=== PATIENT | male | born 2000 | race Caucasian/White ===

== ENCOUNTER 2018-03-26 17:10 | Emergency (ER) | payer MEDICAID ==
[~2018-03-26] VITALS: Ht 172.7 cm; Wt 56.4 kg
[~2018-03-26 17:10] MED LIST: ONDA4TAB12 PO
[2018-03-26 17:48] LABS: BASOPHILS # (AUTO) 0.1 X10'3 (0-0.2); BASOPHILS % (AUTO) 0.7 % (0-1); EOSINOPHILS % (AUTO) 0.6 % (0-6); HEMATOCRIT 44.2 % (42.0-52.0); LYMPHOCYTES # (AUTO) 2.1 X10'3 (1.1-4.8); LYMPHOCYTES % (AUTO) 26.8 % (21-51); MEAN CORPUSCULAR HEMOGLOBIN 31.3 PG (27.0-31.0); MEAN CORPUSCULAR HGB CONC 33.9 % (33.0-36.5); MEAN CORPUSCULAR VOLUME 92.2 FL (78-98); MEAN PLATELET VOLUME 8.1 FL (7.4-10.4); MONOCYTES # (AUTO) 0.5 X10'3 (0-0.9); MONOCYTES % (AUTO) 5.9 % (2-12); NEUTROPHILS # (AUTO) 5.2 X10'3 (1.8-7.7); PLATELET COUNT 242 X10'3 (140-440); RED BLOOD COUNT 4.79 X10'6 (4.70-6.10); RED CELL DISTRIBUTION WIDTH 12.8 % (11.5-14.5); WHITE BLOOD COUNT 7.9 X10'3 (4.5-11.0)
[2018-03-26 17:59] LABS: CLARITY,URINE SLIGHTLY CLOUDY (Clear); COLOR,URINE YELLOW (Yellow); GLUCOSE, URINE NEGATIVE (Neg); KETONES,URINE NEGATIVE (Neg); LEUKOCYTE ESTERASE ,URINE NEGATIVE (Neg); NITRITES, URINE NEGATIVE (Neg); OCCULT BLOOD,URINE NEGATIVE (Neg); PH,URINE 7.5 (4.8-8.0); PROTEIN,URINE NEGATIVE (Neg); UA COLLECTION TYPE CLN CATCH MIDSTREAM; UROBILINOGEN,URINE 0.2 E.U/dL (0.2-1.0)
[2018-03-26 18:04] LABS: SQUAMOUS EPITHELIAL CELL,UR MODERATE /LPF (FEW)
[2018-03-26 18:05] LABS: BACTERIA,URINE 1+ /HPF (Neg); RBC,URINE 0-2 /HPF (0-2); WBC,URINE 0-4 /HPF (0-4)
[2018-03-26 18:16] LABS: URINE AMPHETAMINE SCREEN NEGATIVE (Neg); URINE BARBITUATE SCREEN NEGATIVE (Neg); URINE BENZODIAZEPINES SCREEN NEGATIVE (Neg); URINE CANNABINOID SCREEN POSITIVE (Neg); URINE COCAINE SCREEN NEGATIVE (Neg); URINE METHADONE SCREEN NEGATIVE (Neg); URINE OPIATE SCREEN NEGATIVE (Neg); URINE PHENCYCLIDINE SCREEN NEGATIVE (Neg)
[2018-03-26 18:19] LABS: ALANINE AMINOTRANSFERASE 15 U/L (12-78); ALBUMIN 4.2 G/DL (3.4-5.0); ALBUMIN/GLOBULIN RATIO 1.2 (1.1-1.5); ALKALINE PHOSPHATASE 57 IU/L (20-180); ANION GAP 7 (8-16); ASPARTATE AMINO TRANSFERASE 12 U/L (10-37); BILIRUBIN,TOTAL 0.4 MG/DL (0.1-1.0); BLOOD UREA NITROGEN 10 MG/DL (7-18); BUN/CREATININE RATIO 9.6 (5.4-32.0); CALCIUM 9.5 MG/DL (8.5-10.1); CHLORIDE 107 MMOL/L (99-107); CREATININE 1.04 MG/DL (0.60-1.10); GLUCOSE 102 MG/DL (70-104); POTASSIUM 4.2 MMOL/L (3.5-5.1); SODIUM 140 MMOL/L (135-145); TOTAL CARBON DIOXIDE 26.2 MMOL/L (24-32); TOTAL PROTEIN 7.6 G/DL (6.4-8.2); eGFR > 90 ML/MIN
[2018-03-26 18:27] LABS: ETHANOL < 0.010 GM/DL (0.0-0.010)
[2018-03-26] MEDS ORDERED: LURA40TA3 PO ×2 (18:43→18:48)
[2018-03-26] MEDS ORDERED: lurasidone 20mg tablet PO SCH (21:00)
[2018-03-26] MEDS ORDERED: LORazepam 1 MG tablet PO PRN (21:05)
[2018-03-26] MEDS ORDERED: nicotine 14mg patch - 24hr TD ONE (21:05)
[2018-03-26] MEDS ORDERED: haloperidol 5mg tablet PO PRN (21:05)
[2018-03-27 05:33] VITALS: BP 97/58
== END 2018-03-27 10:35 | disposition left against medical advice (07) ==
LOC: ER 17:10
DX: F41.9 Anxiety disorder, unspecified (principal); F31.9 Bipolar disorder, unspecified; F17.200 Nicotine dependence, unspecified, uncomplicated; F12.90 Cannabis use, unspecified, uncomplicated; Z79.899 Other long term (current) drug therapy
CPT/HCPCS: 36415; 80053; 80305; 80320; 81001; 84443; 85025; 99284

== ENCOUNTER 2018-03-27 14:16 | Emergency (ER) | payer MEDICAID ==
[~2018-03-27] VITALS: Ht 591.1 cm; Wt 56.4 kg
[~2018-03-27 14:16] MED LIST changes: +LURA40TA3 PO
[2018-03-27] MEDS ORDERED: LORazepam 2 mg/ml vial IM PRN ×2 (14:45→14:59)
[2018-03-27] MEDS ORDERED: haloperidol lactate 5mg/ml inj IM PRN (14:45)
[2018-03-27] MEDS ORDERED: haloperidol 5mg tablet PO PRN (14:45)
[2018-03-27] MEDS ORDERED: haloperidol 5mg tablet PO SCH (14:58)
[2018-03-27] MEDS: haloperidol 5mg tablet PO PRN (15:02)
[2018-03-27] MEDS: LORazepam 1 MG tablet PO PRN (15:02)
[2018-03-27 15:44] LABS: URINE AMPHETAMINE SCREEN NEGATIVE (Neg); URINE BARBITUATE SCREEN NEGATIVE (Neg); URINE BENZODIAZEPINES SCREEN NEGATIVE (Neg); URINE CANNABINOID SCREEN POSITIVE (Neg); URINE COCAINE SCREEN NEGATIVE (Neg); URINE METHADONE SCREEN NEGATIVE (Neg); URINE OPIATE SCREEN NEGATIVE (Neg); URINE PHENCYCLIDINE SCREEN NEGATIVE (Neg)
[2018-03-27] MEDS: haloperidol lactate 5mg/ml inj IM SCH (19:45)
[2018-03-27] MEDS ORDERED: ibuprofen tablet 400 MG TABLET PO ONE (20:00)
[2018-03-28] MEDS: haloperidol lactate 5mg/ml inj IM SCH ×2 (08:00→20:00)
[2018-03-28] MEDS: LORazepam 1 MG tablet PO PRN ×2 (08:17→19:46)
[2018-03-28] MEDS: haloperidol 5mg tablet PO PRN ×2 (08:17→19:47)
[2018-03-28] MEDS ORDERED: lurasidone 20mg tablet PO SCH (21:00)
[2018-03-29 06:36] VITALS: BP 108/65
[2018-03-29] MEDS: haloperidol lactate 5mg/ml inj IM SCH (08:00)
[2018-03-29] MEDS: haloperidol 5mg tablet PO PRN (09:57)
[2018-03-29] MEDS: LORazepam 1 MG tablet PO PRN (09:57)
== END 2018-03-29 17:03 ==
LOC: ER 14:17
DX: F41.9 Anxiety disorder, unspecified (principal); R45.851 Suicidal ideations; F12.90 Cannabis use, unspecified, uncomplicated; F31.9 Bipolar disorder, unspecified; Z79.899 Other long term (current) drug therapy
CPT/HCPCS: 80305; 96372; 99285; J2060; J1630